=== PATIENT | female | born 1990 | race Caucasian/White ===

== ENCOUNTER 2017-12-26 21:26 | Emergency (ER) | payer SELFPAY ==
[~2017-12-26] VITALS: Ht 157.5 cm; Wt 92.1 kg
[2017-12-26 21:31] VITALS: Ht 157.5 cm; Wt 92.1 kg
[2017-12-26 23:52] LABS: BASOPHIL % 0.7 % (0-2); PLATELET COUNT 288 x10^3mcL (130-400); RED CELL DISTRIBUTION WIDTH 13.5 % (11.5-14.5)
[2017-12-26 23:59] LABS: CALCIUM 8.6 mg/dL (8.5-10.1); CARBON DIOXIDE 27.8 mmol/L (21-32); CHLORIDE SERUM 105 mmol/L (98-107); CREATININE SERUM 0.7 mg/dL (0.6-1.0); GFR1 > 60 mL/min; GLUCOSE SERUM 90 mg/dL (74-106); POTASSIUM SERUM 3.9 mmol/L (3.5-5.1); SODIUM SERUM 142 mmol/L (136-145)
[2017-12-27 00:03] LABS: AMPHETAMINE QUAL UR NONE DETECTED (NEG <=1000)
[2017-12-27 00:13] LABS: ALBUMIN 3.8 g/dL (3.4-5.0); ALKALINE PHOSPHATASE 91 U/L (46-116); ALT/SGPT 22 U/L (14-59); AST/SGOT 14 U/L (15-37); BILIRUBIN TOTAL 0.2 mg/dL (0.20-1.00); T4(THYROXINE) 6.1 ug/dL (4.7-13.3); TOTAL PROTEIN, SERUM 7.7 g/dL (6.4-8.2)
[2017-12-27 01:31] VITALS: BP 124/82
== END 2017-12-27 01:31 | disposition home or self-care (01) ==
LOC: ED 21:26
PROVIDERS: Emergency Medicine
DX: J01.90 Acute sinusitis, unspecified (principal); R00.2 Palpitations
CPT/HCPCS: 36415; 83880; Q0092

== ENCOUNTER 2018-09-04 11:48 | Emergency (ER) | payer MEDICAID ==
[~2018-09-04] VITALS: Ht 160 cm; Wt 89.8 kg
[2018-09-04 12:01] VITALS: Ht 160 cm; Wt 89.8 kg
[2018-09-04 13:43] VITALS: BP 118/75
== END 2018-09-04 13:43 | disposition home or self-care (01) ==
LOC: ED 11:48
DX: H92.02 Otalgia, left ear (principal)